=== PATIENT | male | born 2000 | race Caucasian/White ===

== ENCOUNTER 2025-01-17 13:01 | Day surgery (SDC) | payer BC ==
[~2025-01-17 13:01] MED LIST: ACET160L PO; IBUP100S44 PO; IBUP100S5 PO
[2025-01-17] MEDS: LIDOCAINE 3.5 % 1ML OPHTH TOPICAL GEL OU ONE (15:20)
[2025-01-17] MEDS: TETRACAINE 0.5% OPHTH SOLN 4ML As Ordered ONE (15:46)
[2025-01-17 15:56] VITALS: BP 126/68; TEMP 96.8; O2SAT 100
[2025-01-17] MEDS: LIDOCAINE 2% MDV 20ML VIAL As Ordered ONE (15:57)
[2025-01-17] MEDS ORDERED: TOBRADEX OPHTH SUSP 2.5 ML OD SCH (16:00)
[2025-01-17] MEDS ORDERED: TOBRADEX OPHTH SUSP 2.5 ML As Ordered ONE (16:11)
== END 2025-01-17 16:34 | disposition home or self-care (01) ==
LOC: M SDC 13:01
PROVIDERS: ATTEND Ophthalmology
DX: T15 Foreign body on external eye (principal)